=== PATIENT | male | born 1955 | race Native Hawaiian/Other Pacific Islander ===

== ENCOUNTER 2017-04-20 12:31 | Emergency (ER) | payer MEDICARE ==
[2017-04-20 12:35] VITALS: TEMP 98.7
[2017-04-20 13:51] LABS: BASO % 0.4 % (0.0-2.0); EOS # 0.1 K/uL (0.0-0.7); EOS % 1.7 % (0.0-4.0); HEMOGLOBIN 10.7 g/dL (12.0-18.0); LYMPH # 1.5 K/uL (1.0-4.3); LYMPH % 34.4 % (20.0-40.0); MEAN CELL VOLUME 98.6 fl (80.0-94.0); MEAN CORPUSCULAR HEMOGLOBIN 32.4 pg (27.0-31.0); MEAN CORPUSCULAR HGB CONC 32.9 g/dL (33.0-37.0); MEAN PLATELET VOLUME 8.8 fl (7.2-11.7); MONO # 0.3 K/uL (0.0-0.8); MONO % 6.5 % (0.0-10.0); NEUT # 2.5 K/uL (1.8-7.0); RBC 3.3 Mil/uL (4.40-5.90); RED CELL DISTRIBUTION WIDTH 12.1 % (11.5-14.5); WHITE BLOOD COUNT 4.5 K/uL (4.8-10.8)
[2017-04-20 14:07] LABS: BLOOD UREA NITROGEN 30 mg/dl (9-20); CALCIUM 9.2 mg/dL (8.4-10.2); GFR AFRICAN-AMERICAN 57; GFR NON-AFRICAN AMERICAN 47
--- NOTE | 2017-04-20 14:35 | ED PDOC ---
Syncope/Near Syncope/Dizziness Time Seen by Provider: 04/20/17 12:41 Chief Complaint (Nursing): Dizziness/Lightheaded Chief Complaint (Provider): Difficulty breathing History Per: Patient History/Exam Limitations: no limitations Onset/Duration Of Symptoms: Hrs Additional Complaint(s): Patient is a 62 year old male with a past medical history of Parkinson's disease presenting to the emergency department for acute on chronic difficulty breathing that started this morning. Reports chronic dizziness, body aches, nausea, and difficulty breathing. Denies chest pain, leg swelling, cough, past surgeries and other medical problems. PCP: Dr. Black Past Medical History Reviewed: Historical Data, Nursing Documentation, Vital Signs Vital Signs: Last Vital Signs Temp 98.7 F 04/20/17 12:34 Pulse 68 04/20/17 12:34 Resp 20 04/20/17 12:34 BP 175/99 H 04/20/17 12:34 Pulse Ox 99 04/20/17 12:34 - Medical History PMH: Parkinson's Disease - Surgical History Surgical History: No Surg Hx - Family History Family History: States: Unknown Family Hx - Social History Current smoker - smoking cessation education provided: No Ex-Smoker (has not smoked in the last 12 months): No Alcohol: Social Drugs: Denies - Home Medications Home Medications: Ambulatory Orders Medication Instructions Recorded Clindamycin [Cleocin] 300 mg PO TID #21 cap 04/26/15 Ibuprofen 600 mg PO Q6H PRN #15 tab 04/26/15 Diazepam [Valium] 2 mg PO BID PRN #15 tablet 04/20/17 - Allergies Allergies/Adverse Reactions: Allergies Allergy/AdvReac Type Severity Reaction Status Date / Time No Known Allergies Allergy Verified 04/26/15 17:06 Review of Systems ROS Statement: Except As Marked, All Systems Reviewed And Found Negative Constitutional: Positive for: Other (chronic body aches) Cardiovascular: Negative for: Chest Pain Respiratory: Positive for: Shortness of Breath (acute on chronic). Negative for : Cough Gastrointestinal: Positive for: Nausea (chronic) Musculoskeletal: Negative for: Other (Leg swelling) Neurological: Positive for: Dizziness (chronic) Physical Exam - Reviewed Nursing Documentation Reviewed: Yes - Physical Exam Appears: Positive for: Well, Non-toxic, No Acute Distress Head Exam: Positive for: ATRAUMATIC, NORMAL INSPECTION, NORMOCEPHALIC Skin: Positive for: Normal Color, Warm, Dry Eye Exam: Positive for: EOMI, Normal appearance, PERRL Neck: Positive for: Normal, Painless ROM, Supple Cardiovascular/Chest: Positive for: Regular Rate, Rhythm. Negative for: Murmur Respiratory: Positive for: Normal Breath Sounds. Negative for: Accessory Muscle Use, Respiratory Distress Gastrointestinal/Abdominal: Positive for: Normal Exam, Soft Back: Positive for: Normal Inspection Extremity: Positive for: Normal ROM Neurologic/Psych: Positive for: Alert, Oriented - Laboratory Results Result Diagrams: 04/20/17 13:40 04/20/17 13:40 - ECG O2 Sat by Pulse Oximetry: 99 (RA) Pulse Ox Interpretation: Normal Medical Decision Making Medical Decision Making: Time: 13:31 Initial Impression: Dyspnea Differential diagnoses: Acute coronary syndrome, pulmonary embolism, pneumothorax Initial Plan: -EKG -Labs -Dipstick -Chest X-Ray -Reevaluation 13:32 Chest X-Ray Findings: LUNGS: All there is no acute infiltrate or pleural effusion identified. A nodular density is not excluded the left apex for which follow-up chest CT is advised without contrast for greater characterization. PLEURA: No significant pleural effusion identified, no pneumothorax apparent. CARDIOVASCULAR: Normal. OSSEOUS STRUCTURES: No significant abnormalities. VISUALIZED UPPER ABDOMEN: Normal. OTHER FINDINGS: None. IMPRESSION: No acute infiltrate or pleural effusion. No acute cardiac disease grossly evident. Questionable nodule left apex for which follow-up chest CT is advised for greater detail. Findings discussed with Dr. Russ with read back verification provided 2016 15:45 p.m. 17:40 Discussed findings and plan with patient and confirmed that symptoms are chronic. Explained that the findings of the workup are negative. Patient is feeling better. Gave referral to neurologist for his Parkinson's. [employer] # [id number] was used. 18:06 Clinical Impression: Muscle spasm, neuropathy, dyspnea, pulmonary nodule Upon provider reevaluation patient is feeling better, is medically stable, and requires no further treatment in the ED at this time. Patient will be discharged with Rx for Valium. Counseling was provided and all questions were answered regarding diagnosis and need for follow up with Dr. Pino Mansfield. There is agreement to discharge plan. Return if symptoms persist or worsen. Scribe Attestation: Documented by Benita Gonzales, acting as a scribe for Maribel Russ MD. Provider Scribe Attestation: All medical record entries made by the Scribe were at my direction and personally dictated by me. I have reviewed the chart and agree that the record accurately reflects my personal performance of the history, physical exam, medical decision making, and the department course for this patient. I have also personally directed, reviewed, and agree with the discharge instructions and disposition. Disposition - Clinical Impression Clinical Impression: Muscle spasm, Neuropathy, Dyspnea, Pulmonary nodule - Patient ED Disposition Is Patient to be Admitted: No Doctor Will See Patient In The: Office Counseled Patient/Family Regarding: Studies Performed, Diagnosis, Need For Followup - Disposition Referrals: Pino Mansfield MD [Staff Provider] - Disposition: Routine/Home Disposition Time: 18:06 Condition: GOOD Additional Instructions: Follow up with your neurologist in 2-3 days. Prescriptions: Diazepam [Valium] 2 mg PO BID PRN #15 tablet PRN Reason: Muscle Spasm Instructions: Peripheral Neuropathy (ED), Dyspnea (ED) Forms: [employer] (Indonesian)
[2017-04-20] MEDS ORDERED: diaZEpam 10 mg/2 ml Inj IM ONE (15:39)
--- NOTE | 2017-04-20 15:48 | RAD ---
HISTORY: dyspnea COMPARISON: No prior. FINDINGS: LUNGS: All there is no acute infiltrate or pleural effusion identified. A nodular density is not excluded the left apex for which follow-up chest CT is advised without contrast for greater characterization. PLEURA: No significant pleural effusion identified, no pneumothorax apparent. CARDIOVASCULAR: Normal. OSSEOUS STRUCTURES: No significant abnormalities. VISUALIZED UPPER ABDOMEN: Normal. OTHER FINDINGS: None. IMPRESSION: No acute infiltrate or pleural effusion. No acute cardiac disease grossly evident. Questionable nodule left apex for which follow-up chest CT is advised for greater detail. Findings discussed with Dr. Russ with read back verification provided 04/20/2017 15:45 p.m..
[2017-04-20 17:04] VITALS: BP 121/71; PULSE 52; RESP 12
[2017-04-20 17:55] VITALS: O2SAT 99
--- NOTE | 2017-04-21 07:32 | CARD ---
APPROVED REPORT EKG Measurement Heart [id number] <Conclusion> Normal sinus rhythm Normal ECG
== END 2017-04-20 18:41 | disposition home or self-care (01) ==
LOC: H.ER 12:31
DX: R06.00 Dyspnea, unspecified (principal); R91.1 Solitary pulmonary nodule; G90.09 Other idiopathic peripheral autonomic neuropathy; M62.838 Other muscle spasm
CPT/HCPCS: 71010; 80048; 82550; 82948; 84484; 85025; 85378; 93005; 96372; 99284; J3360